=== PATIENT | female | born 1925 | race Caucasian/White ===

== ENCOUNTER 2017-02-11 22:01 | Observation (INO) ==
[2017-02-11] MEDS ORDERED: NS 1,000 ML IV PRN (23:03)
[2017-02-11] MEDS ORDERED: FLEET ENEMA PR ONE (23:17)
[2017-02-11] MEDS ORDERED: FLEET MINERAL OIL ENEMA PR ONE (23:28)
[2017-02-11] MEDS ORDERED: DULCOLAX PO ONE (23:58)
[2017-02-12] MEDS ORDERED: CALMOSEPTINE OINTMENT TOP PRN (04:55)
[2017-02-12] MEDS ORDERED: DULCOLAX PO ONE (05:00)
[2017-02-12 06:01] LABS: MANUAL DIFF NEEDED? NO
[2017-02-12 06:08] LABS: BASO% 0.5 % (0.0-0.8); EOS% 1.2 % (0.0-10.0); HEMATOCRIT 35.1 % (37.0-47.0); HEMOGLOBIN 11.6 g/dL (12.0-16.0); IMM GRAN# 0.03 X1000 (0.0-0.04); IMM GRAN% 0.4 % (0.0-0.5); LYMPH# 2.12 X1000 (1.2-3.4); MCH 33.2 PG (27-31); MCV 100.6 FL (81-99); MONO# 0.89 X1000 (0.11-0.59); MONO% 10.9 % (1.7-9.3); MPV 9.4 FL (7.4-10.4); PLT 260 X1000 (130-400); RBC 3.49 XMIL (4.2-5.4)
[2017-02-12 06:30] LABS: AGAP 8; ALBUMIN 3.2 g/dL (3.5-5.0); ALKALINE PHOSPHATASE 55 U/L (32-104); BUN 11 mg/dL (8-22); CALCIUM 7.9 mg/dL (8.8-10.2); CHLORIDE 99 mmol/L (98-107); COSMO 276; GOT 13 U/L (10-30); GPT 10 U/L (10-36); POTASSIUM 3.3 mmol/L (3.5-5.1); SODIUM 139 mmol/L (136-145); TCO2 32 mmol/L (25-35)
[2017-02-12] MEDS ORDERED: GOLYTELY PO ONE (07:00)
--- NOTE | 2017-02-12 07:14 | Diag Imaging Result Doc PS360 ---
EXAM: ABDOMEN FLAT/UPRIGHT HISTORY: sbo TECHNIQUE: Portable upright, three views COMPARISON: None. FINDINGS: No free air beneath the diaphragm. There are surgical clips in the right upper quadrant cholecystectomy. No bowel obstruction. No organomegaly. Moderate to prominent atherosclerosis. No abnormal abdominal calcifications overlying the kidneys. There are several pelvic phleboliths. IMPRESSION: No small bowel obstruction. Electronically signed by Chris Dye 02/12/2017 7:12 AM
[2017-02-12] MEDS ORDERED: COUMADIN PO SCH ×2 (14:15)
[2017-02-12] MEDS ORDERED: TYLENOL PO PRN (14:18)
[2017-02-12] MEDS: ZOFRAN ODT PO PRN ×2 (14:27→20:11)
[2017-02-12] MEDS: PROTONIX PO SCH (14:27)
[2017-02-12] MEDS ORDERED: DUONEB (A & A) INH SCH (15:00)
--- NOTE | 2017-02-12 15:29 | HISTORY AND PHYSICAL ---
CHIEF COMPLAINT: Constipated, nausea. HISTORY OF PRESENT ILLNESS: This is an 89-year-old white female well known to me that is a resident at [facility] here in [place]. She has had intermittent problems with constipation/impaction. She has been found to be severely impacted over the last week. She has been unresponsive to conservative measures at her place of residence. She is also complaining of nausea with decreased appetite/anorexia. No fever or chills. No vomiting. She has had enemas, suppositories, MiraLAX, Dulcolax to no avail. She has apparently had some very minor stools, but the healthcare workers there are not with her 27/03, and Ms. Gan does not recall when she actually has bowel movements. She does have progressive to severe dementia. She is admitted for failure of outpatient treatment due to fecal impaction. She had an x-ray on the day of admission at [facility] which revealed a large amount of rectal retained stool and diffuse gas pattern throughout the large and small intestine. PAST MEDICAL HISTORY: She has a history of right carotid endarterectomy years ago, remote history of hysterectomy and cholecystectomy. MEDICAL ILLNESSES: Long history of hypertension, atrial fibrillation, peripheral vascular disease, osteoporosis, degenerative joint disease, vascular dementia (severe). CURRENT MEDICATIONS: Namenda 10 mg 1 a day, metoprolol succinate ER 50 mg a day, donepezil (Aricept) 5 mg 1 daily, Warfarin 2 mg 2 tablets on Monday, Monday, Monday, and Monday, 3 tablets for 6 mg on Monday and Monday. She takes Digitek 125 mcg a day, Lasix 20 mg a day, Micro-K 10 mEq a day. ALLERGIES: No known drug allergies. SOCIAL HISTORY: She lives at [facility] in assisted living. She has an attentive family. She has 2 sons and 1 daughter, Linda Deshpande lives here in [place], is her daughter and primary manufacturer representative. REVIEW OF SYSTEMS: Recent carotid flow study reveals up to perhaps 90% blockage in the left internal carotid. PHYSICAL EXAMINATION: GENERAL: A well-developed white female who knows me. She does not recall recent events. She repeats herself routinely. Daughter is at bedside. VITAL SIGNS: Temperature is 98.8, pulse 81, respirations 18, blood pressure 114/53, O2 saturation is 98% on room air. HEENT: TMs are clear. Pupils are equal, round and reactive. Nasal mucosa is moist. Oropharynx is clear. NECK: Supple. Good carotid pulses. Bilateral bruits. LUNGS: Clear breath sounds. HEART: Regular rate and rhythm. ABDOMEN: Distended. There are active bowel sounds. She is nontender to palpation. EXTREMITIES: Good femoral pulses. No bruits. RECTAL: No obvious rectal stool. MUSCULOSKELETAL/NEUROLOGIC: She moves all extremities symmetrically but is disoriented to person, place and time. DIAGNOSTIC DATA: White blood cell count is 8.15, hemoglobin and hematocrit of 11 and 35, MCV of 100, platelets 260. Sodium is 139, potassium 3.3, BUN and creatinine are 11 and 0.7. Calcium is 7.9, total protein 5, albumin 3.2. Flat and upright of the abdomen again reveals diffuse gas pattern. No air fluid levels. Distention of the colon and small intestine. There is a large ball of stool in the rectal vault. This x-ray was done at [facility] here in [place]. IMPRESSION: 1. This is an 89-year-old white female now with failure to thrive and failure of outpatient management due to fecal impaction. She does not clinically have a fecal impaction in the rectum, but she certainly has more stool above the rectum that needs to resolve. 2. Severe vascular dementia. 3. Mild hypokalemia. 4. Long history of peripheral vascular disease with carotid artery disease. 5. Long history of hypertension. 6. Long history of atrial fibrillation but seems to be in normal sinus rhythm. She is on chronic Coumadin therapy. PLAN: 1. We will admit for fecal impaction. 2. I gave her 3 Fleet enemas plus 1 mineral oil enema upon admission, personally administered by me. The patient had immediate and excellent results. 3. We will watch and observe her cautiously. 4. We will hold her medicines overnight. 5. I have discussed with family the intensity of care, and they are contemplating. cc: Conner Jara MD
--- NOTE | 2017-02-12 15:33 | PROGRESS NOTE ---
DATE: 02/12/2017 CHIEF COMPLAINT: Just weak, still "nauseous." SUBJECTIVE: Daughter is at bedside. She does respond to simple questions appropriately. OBJECTIVE: Vital signs: Temperature is 98.5, pulse 86, respirations 18, blood pressure 130/62, O2 saturation is 94% on room air. She has had multiple bowel movements throughout the night and this morning. She has drank a small portion of GoLYTELY this morning as well. DIAGNOSTIC DATA: KUB of the abdomen shows a decrease in gaseous distention. There is still a very minimal retention of stool in the rectal vault, much improved from yesterday. IMPRESSION: 1. Fecal impaction is resolving. 2. The patient is certainly tired and fatigued from her ordeal during the night. 3. She continues to complain of nausea, but it is unclear if this is part of her dementia or if she is really nauseous. She is not vomiting. 4. Anorexia. The patient certainly does not exhibit an appetite. 5. We will restart her home medications. PLAN: 1. We will watch her overnight. 2. Advance her diet. 3. Restart her medications. 4. If the family so desires, we will repeat a GI workup with upper endoscopy and lower endoscopy as an outpatient. -9 cc: Conner Jara MD
[2017-02-12 16:32] LABS: INR 4.53 (0.86-1.15); PROTIME 42.4 Seconds (12.1-15.5)
[2017-02-12] MEDS: MEGACE PO SCH (16:54)
[2017-02-12] MEDS: NAMENDA PO SCH (20:12)
[2017-02-12] MEDS: RANEXA PO SCH (20:12)
[2017-02-12] MEDS: SENOKOT PO SCH (20:12)
[2017-02-12] MEDS: CARAFATE LIQUID PO SCH (20:12)
[2017-02-12] MEDS ORDERED: LEXAPRO PO SCH (21:00)
[2017-02-13] MEDS: CARAFATE LIQUID PO SCH ×3 (02:06→14:42)
[2017-02-13 05:59] LABS: MANUAL DIFF NEEDED? NO
[2017-02-13 06:13] LABS: BASO% 0.7 % (0.0-0.8); EOS# 0.11 X1000 (0.0-0.7); HEMATOCRIT 33.5 % (37.0-47.0); HEMOGLOBIN 10.7 g/dL (12.0-16.0); IMM GRAN# 0.02 X1000 (0.0-0.04); IMM GRAN% 0.4 % (0.0-0.5); LYMPH# 1.73 X1000 (1.2-3.4); LYMPH% 31.6 % (20.5-51.1); MCH 32.2 PG (27-31); MCHC 31.9 g/dL (33-37); MCV 100.9 FL (81-99); MONO# 0.59 X1000 (0.11-0.59); MONO% 10.8 % (1.7-9.3); MPV 9.7 FL (7.4-10.4); NEUT% 54.5 % (42.2-75.2); PLT 240 X1000 (130-400); RBC 3.32 XMIL (4.2-5.4)
[2017-02-13 06:49] LABS: AGAP 9; ALBUMIN 2.9 g/dL (3.5-5.0); ALKALINE PHOSPHATASE 50 U/L (32-104); BUN 9 mg/dL (8-22); CALCIUM 7.9 mg/dL (8.8-10.2); CHLORIDE 97 mmol/L (98-107); COSMO 268; GOT 13 U/L (10-30); GPT 9 U/L (10-36); SODIUM 135 mmol/L (136-145); TCO2 29 mmol/L (25-35); TOTAL PROTEIN 4.7 g/dL (6.3-8.3)
[2017-02-13 06:52] LABS: PROTIME 39.3 Seconds (12.1-15.5)
[2017-02-13 06:54] LABS: DIGOXIN 0.6 ng/mL (0.9-2.0)
[2017-02-13 07:02] LABS: INR 4.1 (0.86-1.15)
--- NOTE | 2017-02-13 08:08 | Diag Imaging Result Doc PS360 ---
EXAM: Supine and upright abdomen, three views HISTORY: Small bowel obstruction TECHNIQUE: COMPARISON: 02/12/2017 FINDINGS: No free air beneath the diaphragm. The gallbladder has been removed. The bowel loops are not dilated. No organomegaly. Mild scoliosis with degenerative spine changes. Moderate to prominent atherosclerosis. IMPRESSION: No bowel obstruction identified. Electronically signed by Chris Dye 02/13/2017 7:24 AM
[2017-02-13 08:50] VITALS: BP 146/56
[2017-02-13] MEDS ORDERED: LASIX PO SCH (09:00)
[2017-02-13] MEDS ORDERED: PREDNISONE PO SCH (09:00)
[2017-02-13] MEDS ORDERED: LANOXIN PO SCH (09:00)
[2017-02-13] MEDS ORDERED: TOPROL XL PO SCH (09:00)
[2017-02-13] MEDS ORDERED: ARICEPT PO SCH (09:00)
[2017-02-13] MEDS: MEGACE PO SCH ×2 (09:27→12:02)
[2017-02-13] MEDS: PROTONIX PO SCH (09:27)
[2017-02-13] MEDS: SENOKOT PO SCH (09:27)
[2017-02-13] MEDS: RANEXA PO SCH (09:27)
[2017-02-13] MEDS: NAMENDA PO SCH (09:29)
[2017-02-13] MEDS: ZOFRAN ODT PO PRN (12:03)
--- NOTE | 2017-02-14 07:40 | DISCHARGE SUMMARY ---
ADMISSION DATE: 02/11/2017 DISCHARGE DATE: 02/13/2017 PRIMARY DISCHARGE DIAGNOSIS: Acute colonic impaction. OTHER DIAGNOSES: 1. Vascular dementia. 2. [id number] peripheral vascular disease. 3. Carotid artery disease. 4. Remote history of atrial fibrillation on chronic Coumadin. 5. Mild hypokalemia. PRIMARY PROCEDURE PERFORMED: Radiographic imaging of the abdomen OTHER PROCEDURES: 1. IV fluids. 2. Initiation of enemas x4. 3. GoLYTELY prep. DISPOSITION: The patient will be discharged home in good condition. She is a resident at [facility]. She will be followed up in my office on Monday or of this week. Long discussion was made with her daughter, Beckie. DISCHARGE MEDICATIONS: Include: 1. Acetaminophen 325 mg q.4 hours p.r.n. 2. Protonix 40 mg 1 each morning. 3. Senokot 2 tablets twice a day. 4. Carafate 1 g every 6 hours 4 times a day. 5. Megace 40 mg 3 times a day with meals. 6. Albuterol nebs 3 times a day p.r.n. 7. B12 injection a 1000 mcg weekly. 8. She was instructed to not take her 3 mg warfarin and to discontinue that. She was told to take 4 mg of warfarin on Monday, Monday, and Monday only. We will follow up with an INR. 9. She will use [id number] Senokot 2 tablets twice a day. 10. She was instructed not to use Zofran and to not use her propylene glycol. HISTORY OF PRESENT ILLNESS: This is a 89-year-old, white female admitted after having fecal impaction. LABORATORY DATA: On admission, white blood cell count was 8.15, at time of discharge, 5.48. Hemoglobin and hematocrit respectively at 11 and 35 and 10 and 33. Platelets 260,000/240,000. Sodium at time of discharge 135, potassium 3.0, BUN and creatinine 9 and 0.7 respectively. Total protein 4.7, albumin 2.9. No urine specimen apparently was obtained. KUB flat and upright of the abdomen today revealed no gaseous distention. There is no retained stool. HOSPITAL COURSE: The patient was admitted. Enemas were given per myself x4. She was also given a small amount of GoLYTELY prep. She had excellent defecation. Her intestinal distention resolved via x-ray. Her appetite was quite poor, although she did tolerate some yogurt and muffins. She continued to repeatedly complain of being nauseated. Long discussion was made with her daughter, Beckie, that this could be a form of obsession due to her dementia. She has very poor short-term memory. She is not vomiting and has not been actively vomiting. We will follow up as an outpatient. Consider upper endoscopy and colonoscopy, which she has had in recent years. I discussed with Beckie her Power of Continuous Drier Operator to discuss with her family the options that they would like to pursue and we will discuss these in the office. cc: Conner Jara MD
[2017-02-14] MEDS ORDERED: KLOR-CON PO SCH (09:00)
== END 2017-02-13 16:07 | disposition home health service (06) ==
LOC: DIRADM → P.MEDSURG 22:01
PROVIDERS: ADMIT Family Medicine; ATTEND Family Medicine